=== PATIENT | female | born 1955 | race Caucasian/White ===

== ENCOUNTER 2024-04-09 12:55 | Outpatient (AMB) | payer MEDICARE, MEDICAID, SELFPAY ==
[2024-04-09 13:17] VITALS: PULSE 85; O2SAT 91; BMI 13.5
--- NOTE | 2024-04-09 13:17 | MHC.OFFVIS ---
Vital Signs 04/09/24 13:17 Height 5 ft 3 in Weight 76 lb BMI 13.5 Pulse 85 Pulse Source Pulse Oximeter Pulse Oximetry (%) 91 L Oxygen Delivery Method Room Air Intake Visit Reasons: Chronic Pain Allergies acetaminophen [From Vicodin] Allergy (Verified 04/09/24 13:28) Anaphylaxis alendronate sodium Allergy (Verified 04/09/24 13:28) Joint Pain baclofen Allergy (Verified 04/09/24 13:28) Hallucinations cyclobenzaprine Allergy (Verified 04/09/24 13:28) Spasm honey Allergy (Verified 04/09/24 13:28) unknown hydrocodone [From Vicodin] Allergy (Verified 04/09/24 13:28) Anaphylaxis ibuprofen Allergy (Verified 04/09/24 13:28) Anaphylaxis latex Allergy (Verified 04/09/24 13:28) Hives metoprolol Allergy (Verified 04/09/24 13:28) Respiratory distress varenicline [From Chantix] Allergy (Verified 04/09/24 13:28) Nightmare verapamil Allergy (Verified 04/09/24 13:28) Hives peppers Allergy (Uncoded 04/09/24 13:28) Unknown Medication List - Last Reconciled 04/09/24 by Judi Galarza acetazolamide 250 mg PO BID albuterol 90 mcg/actuation mcg inhalation zlpenroevve-jztlooqwz-yxwwgmnm 200-62.5-25 mcg (Trelegy Ellipta) 1 inh inhalation DAILY furosemide 20 mg PO .prn levalbuterol tartrate 45 mcg/actuation 1 puff inhalation Q4-6H PRN oxycodone 5 mg PO Q4H PRN potassium chloride ER 10 mEq PO BID pregabalin 25 mg PO BID HPI Comments Details: Amanda is a very pleasant 68-year-old female who presents to the office today for evaluation and management of her chronic left hip pain Patient reports she has been suffering with this pain for approximately 10 years. Pain started after she was injured while walking her dog She also attributes her pain to 3 surgeries. She had left lumbar diskectomies in 2015 and 2019. She also had a left sacroiliac joint fusion in 2017. Unable to tolerate physical therapy. Has tried in the past but states it was too painful and made everything worse. Denies history of chiropractor, acupuncture, massage or injections Currently taking chronic opioids but pain persists. Formally under the care of [facility], they discussed spinal cord stimulation with her. After doing the mental health evaluation and then discussing the postop restrictions patient declined to proceed with the procedure. Denies any recent imaging of her hip right pelvis Pain today is rated as an 8/10, constant and worse in the morning and in the evening Pain increases with heat, cold, weather and movements including walking, sitting, lying. Improves with medications. In terms of muscle damage condition is described as throbbing, pounding, cramping, dull, sore, tugging, jumping, sharp, tight, squeezing Pain is negatively impacting patient's enjoyment of life, general activity, mood, sleep, mobility, ability to care for herself. Denies current use of anticoagulants. Endorses current use of nicotine/tobacco Denies current use of alcohol or illicit substances. Review of Systems Const All systems reviewed & are unremarkable except as noted in HPI and below Physical Exam Vital Signs: Last Vital Signs Pulse 85 04/09/24 13:17 Pulse Ox 91 L 04/09/24 13:17 Oxygen Delivery Method Room Air 04/09/24 13:17 BMI result Body Mass Index 13.5 General: awake, alert, oriented. Answers questions appropriately. Fully engaged in examination. Thin, frail. Skin: warm, dry, intact HEENT: Normocephalic. Hearing intact. Cardiac: External chest normal in appearance. Respiratory: No cough, audible wheezing or stridor. Home Oxygen in place via nasal Abdomen: without gross distension. MS: Patient very thin. Pain with any movement, touch, movement. Tenderness to right PSIS. No pain with internal/external rotation of the left hip Very limited range of motion left leg secondary to pain Seated in wheelchair, able to transition from sit to stand without assistance. Unsteady gait Unable to participate in provocative testing secondary to pain. Neurological: Oriented to person, place, time and situation. Thought process intact. No gait abnormalities appreciated. Psychiatric: Appropriate mood and affect. Good judgment and insight. 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 Unable to tolerate nonsteroidal anti-inflammatory medications. She was advised from her primary care doctor that she is not to take these medications. No relief with Tylenol, chronic opioids or other prescription medications Discussed options for treatment including diagnostic testing, therapeutic injections, sprint PNS trial, spinal cord stimulator, chronic PNS and intrathecal drug delivery device. Patient is hesitant to proceed with any implantable devices. She is aware that these would also require mental health evaluation. Will schedule for left medial corneal nerve sprint PNS trial with local anesthetic All questions and concerns were answered, patient agrees with plan. Follow up after procedure, sooner if needed Orders: Orders XR hip LT min 2V Today M25.552 - Pain in left hip XR pelvis 1-2V Today G89.29 - Other chronic pain, M25.552 - Pain in left hip, M53.3 - Sacrococcygeal disorders, not elsewhere classified Coding Level of Care Code New Pt Level 4 (32429) Complex EM visit Add On G2211 Diagnoses Chronic left sacroiliac pain M53.3; G89.29 Left hip pain M25.552 Chronic prescription opiate use Z79.891 Chronic pain syndrome G89.4
== END 2024-04-09 14:25 | disposition home or self-care (01) ==
PROVIDERS: PCP Internal Medicine Nephrology; Visit Provider Registered Nurse Emergency
DX: M53.3 Sacrococcygeal disorders, not elsewhere classified (principal); G89.29 Other chronic pain; M25.552 Pain in left hip; Z79.891 Long term (current) use of opiate analgesic; G89.4 Chronic pain syndrome
CPT/HCPCS: 99204; G2211

== ENCOUNTER → 2024-04-09 12:55 | Outpatient (BNVA) | payer MEDICARE, MEDICAID, SELFPAY | PROVIDERS: PCP Internal Medicine Nephrology; Visit Provider Registered Nurse Emergency | DX: M25.552 Pain in left hip (principal); M53.3 Sacrococcygeal disorders, not elsewhere classified; G89.4 Chronic pain syndrome; G89.29 Other chronic pain; Z79.891 Long term (current) use of opiate analgesic | CPT/HCPCS: 99202 ==